=== PATIENT | female | born 1935 | race Caucasian/White ===

== ENCOUNTER 2016-12-24 18:25 | Inpatient (IN) | payer MEDICARE, OTHER ==
[~2016-12-24] VITALS: Ht 152.4 cm; Wt 59.0 kg
[~2016-12-24 18:25] MED LIST: ACET325T53 PO; ASPI81TA31 PO; BISA10SU12 RC; CHOL400C8 PO; CRANBERRY PO; DEXT1CAP3 PO; DOCU-141 PO; FERR-58 PO; GABA-532 PO; HYDR-3326 PO; MAGN400O6 PO; MULT1TAB11 PO; Metoprolol Tartrate PO; NA P133E RC; PANT20TA2 PO
--- NOTE | 2016-12-24 18:41 | NUR ---
PATIENT ARRIVED VIA AMBULANCE FOR "POOR PO'S". SHE IS AWAKE AND ALERT.
[2016-12-24] MEDS ORDERED: HYDR-3326 PO (18:42)
[2016-12-24] MEDS ORDERED: CLON0.5T PO (18:42)
[2016-12-24] MEDS ORDERED: ALBU2.5V38 NEB (18:42)
[2016-12-24] MEDS ORDERED: RIVA10TA PO (18:42)
[2016-12-24] MEDS ORDERED: ROSU10TA PO (18:42)
[2016-12-24 19:53] LABS: BASOPHILS % (AUTO) 0.2 % (0.0-2.0); EOSINOPHILS # (AUTO) 0.2 K/uL (0.0-0.7); EOSINOPHILS % (AUTO) 2.9 % (0.0-7.0); HEMATOCRIT 37.2 % (37-47); HEMOGLOBIN 12.4 G/DL (12.0-16.0); LYMPHOCYTES # (AUTO) 1.5 K/UL (0.8-4.8); LYMPHOCYTES % (AUTO) 22.5 % (20.5-51.5); MEAN CORPUSCULAR HEMOGLOBIN 27.6 UUG (27.0-31.0); MEAN CORPUSCULAR HGB CONC 34 g/dL (32.0-37.0); MEAN CORPUSCULAR VOLUME 82.4 FL (81.0-99.0); MONOCYTES # (AUTO) 0.6 K/UL (0.1-1.30); MONOCYTES % (AUTO) 8.6 % (0.0-11.0); NEUTROPHILS # (AUTO) 4.2 K/UL (1.8-8.9); NEUTROPHILS % (AUTO) 65.8 % (38.5-71.5); PLATELET COUNT (AUTO) 125 K/UL (150-450); RED BLOOD CELL COUNT(AUTO) 4.52 MIL/UL (4.2-5.4); WHITE BLOOD COUNT (AUTO) 6.5 K/UL (4.0-11.2)
[2016-12-24 19:54] LABS: CARBON DIOXIDE 26 mmol/L (21-32); CHLORIDE 106 mmol/L (98-107); CREATININE 0.9 mg/dL (0.6-1.3); GLUCOSE 114 mg/dL (74-106); POTASSIUM 4.3 mmol/L (3.5-5.1); UREA NITROGEN, BLOOD 19 mg/dL (7-18)
[2016-12-24 20:05] LABS: ALANINE AMINOTRANSFERASE 20 U/L (14-59); ALKALINE PHOSPHATASE 62 U/L (50-136); ASPARTATE AMINOTRANSFERASE 21 U/L (15-37); BILIRUBIN,DIRECT 0.1 mg/dL (0.0-0.2); BILIRUBIN,TOTAL 0.4 mg/dL (0.2-1.0); TOTAL PROTEIN, SERUM 7.5 g/dL (6.4-8.2)
[2016-12-24 20:25] LABS: *BLOOD, URINE 3+ (NEGATIVE); *CLARITY,URINE CLOUDY (CLEAR); *KETONES,URINE NEGATIVE (NEGATIVE); *UROBILINOGEN,URINE 0.2 E.U./dl (NORMAL); LEUKOCYTE ESTERASE ,URINE 3+ (NEGATIVE); NITRITE, URINE POSITIVE (NEGATIVE); UGLUCOSE NEGATIVE (NEGATIVE)
[2016-12-24 20:26] LABS: *BILIRUBIN,URIN NEGATIVE (NEGATIVE); *COLOR,URINE Brown (YELLOW); *PROTEIN,URINE 3+ (NEGATIVE)
[2016-12-24 20:29] LABS: BACTERIA,URINE MODERATE /HPF (NONE SEEN); RBC,URINE TNTC /HPF (0-3); SQUAMOUS EPITHELIAL CELL,UR FEW /HPF (NONE SEEN); WBC,URINE 80-100 /HPF (0-3)
--- NOTE | 2016-12-24 20:39 | NUR ---
Call placed to [facility], Dr. Lewis will be paged.
[2016-12-24] MEDS ORDERED: HALOPERIDOL LACTATE 5 MG/1 ML VIAL IV ONE (20:45)
[2016-12-24] MEDS ORDERED: CEFTRIAXONE 1 G in IV DEXTROSE 5% 50 ML IV ONE (20:45)
[2016-12-24] MEDS ORDERED: NITROFURANTOIN/NITROFURAN MAC 100 MG CAPSULE PO ONE (20:45)
[2016-12-24] MEDS ORDERED: HALOPERIDOL LACTATE 5 MG/1 ML VIAL ONE (20:55)
[2016-12-24] MEDS ORDERED: CEFTRIAXONE 1 G VIAL ONE (20:56)
[2016-12-24] MEDS ORDERED: NITROFURANTOIN/NITROFURAN MAC 100 MG CAPSULE ONE (20:56)
--- NOTE | 2016-12-24 21:16 | NUR ---
Pt. admitted to [facility], under care of Dr. Lewis Belongs List completed
[2016-12-24] MEDS ORDERED: Z GUARD REMEDY PASTE 57 GM TUBE TOP PRN (23:00)
[2016-12-24] MEDS ORDERED: BISACODYL 10 MG SUPP.RECT RC PRN (23:45)
[2016-12-24] MEDS ORDERED: MAGNESIUM HYDROXIDE 30 ML LIQUID UDC PO PRN (23:45)
[2016-12-24] MEDS ORDERED: HYDROCODONE/APAP 5-325MG TABLET PO PRN (23:45)
[2016-12-24] MEDS ORDERED: ALBUTEROL SULFATE 2.5 MG/3 ML NEBU NEB PRN (23:45)
[2016-12-24] MEDS ORDERED: FLEET ENEMA 133 ML BOTTLE RC PRN (23:45)
[2016-12-25] MEDS ORDERED: CEFTRIAXONE 1 G in IV DEXTROSE 5% 50 ML IV SCH ×2
[2016-12-25] MEDS: CLONAZEPAM 0.5 MG TABLET PO PRN ×2 (03:44→13:56)
[2016-12-25 05:00] VITALS: BP 117/70
[2016-12-25 06:56] LABS: EOSINOPHILS # (AUTO) 0.2 K/uL (0.0-0.7); EOSINOPHILS % (AUTO) 2.1 % (0.0-7.0); HEMATOCRIT 36.2 % (37-47); HEMOGLOBIN 11.9 G/DL (12.0-16.0); LYMPHOCYTES # (AUTO) 1.3 K/UL (0.8-4.8); LYMPHOCYTES % (AUTO) 17.8 % (20.5-51.5); MEAN CORPUSCULAR HEMOGLOBIN 27.7 UUG (27.0-31.0); MEAN CORPUSCULAR HGB CONC 33 g/dL (32.0-37.0); MEAN CORPUSCULAR VOLUME 83.8 FL (81.0-99.0); MONOCYTES # (AUTO) 0.6 K/UL (0.1-1.30); MONOCYTES % (AUTO) 7.5 % (0.0-11.0); NEUTROPHILS # (AUTO) 5.2 K/UL (1.8-8.9); NEUTROPHILS % (AUTO) 72.6 % (38.5-71.5); PLATELET COUNT (AUTO) 113 K/UL (150-450); RED BLOOD CELL COUNT(AUTO) 4.32 MIL/UL (4.2-5.4); WHITE BLOOD COUNT (AUTO) 7.4 K/UL (4.0-11.2)
[2016-12-25 07:13] LABS: ALANINE AMINOTRANSFERASE 19 U/L (14-59); ALKALINE PHOSPHATASE 56 U/L (50-136); ASPARTATE AMINOTRANSFERASE 24 U/L (15-37); BILIRUBIN,TOTAL 0.4 mg/dL (0.2-1.0); CARBON DIOXIDE 26 mmol/L (21-32); CHLORIDE 105 mmol/L (98-107); CHOLESTEROL 134 mg/dL (<200); GLUCOSE 115 mg/dL (74-106); HDL CHOLESTEROL 39 mg/dL (40-60); POTASSIUM 3.8 mmol/L (3.5-5.1); TOTAL PROTEIN, SERUM 7.1 g/dL (6.4-8.2); TRIGLYCERIDES 244 MG/DL (30-150); UREA NITROGEN, BLOOD 20 mg/dL (7-18)
[2016-12-25 07:19] LABS: THYROID STIMULATING HORMONE 1.078 mIU/mL (0.358-3.740)
[2016-12-25 07:33] LABS: IRON, SERUM 45 ug/dL (50-175)
--- NOTE | 2016-12-25 07:59 | NUR ---
Sleeping, comfortable. Bed alarm on
[2016-12-25] MEDS: METOPROLOL TARTRATE 25 MG TABLET PO SCH ×2 (08:49→20:02)
[2016-12-25] MEDS: GABAPENTIN 100 MG CAPSULE PO SCH ×3 (08:49→18:16)
[2016-12-25] MEDS: PANTOPRAZOLE SODIUM 40 MG TABLET.DR PO SCH (08:49)
[2016-12-25 11:06] VITALS: BP 100/45
--- NOTE | 2016-12-25 13:56 | NUR ---
Patient agitated, screaming. Noted with BM. Incontinence care done. Repositioned comfortably but still screaming. Klonopin PRN given.
[2016-12-25 15:11] VITALS: BP 140/71
[2016-12-25] MEDS: RIVAROXABAN 10 MG TABLET PO SCH (18:16)
--- NOTE | 2016-12-25 18:23 | NUR ---
Drowsy, able to wake up, able to give apple sauce and medication. Repositioned comfortably. Bed alarm on.
[2016-12-25 20:00] VITALS: BP 125/68
[2016-12-25] MEDS: ATORVASTATIN 20 MG TABLET PO SCH (20:03)
[2016-12-25] MEDS: CEFTRIAXONE 1 G in IV DEXTROSE 5% 50 ML IV SCH (20:03)
--- NOTE | 2016-12-25 20:15 | NUR ---
CAREGIVER JOSE FED PATIENT HER DINNER. 90% CONSUMED. NO ASPIRATION.
[2016-12-25] MEDS ORDERED: Medication Not On Formulary EA (Rosuvastatin Calcium (Crestor) 1 TAB) PO SCH (21:00)
[2016-12-26 04:00] VITALS: BP 107/78
[2016-12-26] MEDS: CLONAZEPAM 0.5 MG TABLET PO PRN ×2 (05:44→18:22)
--- NOTE | 2016-12-26 06:00 | NUR ---
PATIENT SLEPT WELL, IN NO ACUTE DISTRESS. ZAMORA CATH INTACT, DRAINING CLOUDY, YELLOW URINE. IV ANTIBIOTICS ADMINISTERED ORDERED, NO ADVERSE REACTION NOTED. PATIENT KEPT CLEAN/DRY, REPOSITIONED FOR COMFORT. BED ALARM ON. WILL CONTINUE TO MONITOR.
[2016-12-26] MEDS: PANTOPRAZOLE SODIUM 40 MG TABLET.DR PO SCH (06:01)
[2016-12-26] MEDS: METOPROLOL TARTRATE 25 MG TABLET PO SCH ×2 (08:54→20:01)
[2016-12-26] MEDS: GABAPENTIN 100 MG CAPSULE PO SCH ×3 (08:54→17:47)
[2016-12-26 12:03] VITALS: BP 144/77
--- NOTE | 2016-12-26 12:56 | NUR ---
PT ATE LUNCH IN CHAIR, PUT BACK TO BED, INCONTINENCE CARE PROVIDED, WILL CONTINUE TO MONITOR
[2016-12-26 16:16] VITALS: BP 114/59
[2016-12-26] MEDS: RIVAROXABAN 10 MG TABLET PO SCH (17:48)
[2016-12-26] MEDS: ACETAMINOPHEN 325 MG TABLET PO PRN (18:28)
--- NOTE | 2016-12-26 18:31 | NUR ---
PT WARM TO TOUCH, TEMP TAKEN 99.7. TYLENOL GIVEN ORDERED
[2016-12-26 20:00] VITALS: BP 139/70
[2016-12-26] MEDS: ATORVASTATIN 20 MG TABLET PO SCH (20:01)
[2016-12-26] MEDS: CEFTRIAXONE 1 G in IV DEXTROSE 5% 50 ML IV SCH (20:01)
[2016-12-27 05:16] VITALS: BP 98/69
[2016-12-27] MEDS: PANTOPRAZOLE SODIUM 40 MG TABLET.DR PO SCH (06:00)
[2016-12-27 06:31] LABS: ALANINE AMINOTRANSFERASE 22 U/L (14-59); ALKALINE PHOSPHATASE 55 U/L (50-136); ASPARTATE AMINOTRANSFERASE 25 U/L (15-37); BILIRUBIN,TOTAL 0.4 mg/dL (0.2-1.0); CARBON DIOXIDE 27 mmol/L (21-32); CHLORIDE 104 mmol/L (98-107); CREATININE 1.2 mg/dL (0.6-1.3); GLUCOSE 155 mg/dL (74-106); MAGNESIUM 2.1 mg/dL (1.8-2.4); PHOSPHOROUS 3.8 mg/dL (2.5-4.9); POTASSIUM 3.9 mmol/L (3.5-5.1); TOTAL PROTEIN, SERUM 7.7 g/dL (6.4-8.2); UREA NITROGEN, BLOOD 29 mg/dL (7-18)
--- NOTE | 2016-12-27 06:35 | NUR ---
PT SLEPT WELL, IN NO ACUTE DISTRESS. NO SIGNIFICANT CHANGE OF CONDITION THROUGHOUT THE SHIFT. BED ALARM ON. WILL CONTINUE TO MONITOR.
[2016-12-27 06:42] LABS: BASOPHILS % (AUTO) 0.2 % (0.0-2.0); EOSINOPHILS # (AUTO) 0.2 K/uL (0.0-0.7); EOSINOPHILS % (AUTO) 3.2 % (0.0-7.0); HEMATOCRIT 40.2 % (37-47); HEMOGLOBIN 13.4 G/DL (12.0-16.0); LYMPHOCYTES # (AUTO) 1.7 K/UL (0.8-4.8); LYMPHOCYTES % (AUTO) 23.7 % (20.5-51.5); MEAN CORPUSCULAR HEMOGLOBIN 27.7 UUG (27.0-31.0); MEAN CORPUSCULAR HGB CONC 33 g/dL (32.0-37.0); MEAN CORPUSCULAR VOLUME 83.2 FL (81.0-99.0); MONOCYTES # (AUTO) 0.6 K/UL (0.1-1.30); MONOCYTES % (AUTO) 8.4 % (0.0-11.0); NEUTROPHILS # (AUTO) 4.7 K/UL (1.8-8.9); NEUTROPHILS % (AUTO) 64.5 % (38.5-71.5); PLATELET COUNT (AUTO) 135 K/UL (150-450); RED BLOOD CELL COUNT(AUTO) 4.82 MIL/UL (4.2-5.4); WHITE BLOOD COUNT (AUTO) 7.2 K/UL (4.0-11.2)
[2016-12-27] MEDS: METOPROLOL TARTRATE 25 MG TABLET PO SCH ×2 (08:28→21:35)
[2016-12-27] MEDS: GABAPENTIN 100 MG CAPSULE PO SCH ×3 (08:28→16:12)
[2016-12-27] MEDS ORDERED: Z GUARD REMEDY PASTE 57 GM TUBE TOP PRN ×2 (10:45→11:30)
[2016-12-27 12:08] VITALS: BP 103/65
[2016-12-27 15:44] VITALS: BP 109/65
[2016-12-27] MEDS: CLONAZEPAM 0.5 MG TABLET PO PRN (18:10)
[2016-12-27] MEDS: RIVAROXABAN 10 MG TABLET PO SCH (18:17)
[2016-12-27 20:06] VITALS: BP 129/50
[2016-12-27] MEDS: ATORVASTATIN 20 MG TABLET PO SCH (21:35)
[2016-12-27] MEDS: ACETAMINOPHEN 325 MG TABLET PO PRN (21:35)
[2016-12-27] MEDS: CEFTRIAXONE 1 G in IV DEXTROSE 5% 50 ML IV SCH (21:36)
--- NOTE | 2016-12-28 06:00 | NUR ---
PT SLEPT WELL, IN NO ACUTE DISTRESS. ZAMORA CATH INTACT/PATENT, DRAINING YELLOW URINE. IV ANTIBIOTIC ADMINISTERED ORDERED, NO ADVERSE REACTION NOTED. PATIENT KEPT CLEAN/DRY, REPOSITIONED FOR COMFORT. BED ALARM ON, WILL CONTINUE TO MONITOR.
[2016-12-28] MEDS: PANTOPRAZOLE SODIUM 40 MG TABLET.DR PO SCH (06:21)
[2016-12-28 06:36] VITALS: BP 104/57
[2016-12-28] MEDS: GABAPENTIN 100 MG CAPSULE PO SCH ×3 (08:26→16:47)
[2016-12-28] MEDS: METOPROLOL TARTRATE 25 MG TABLET PO SCH ×2 (08:26→20:19)
--- NOTE | 2016-12-28 11:18 | NUR ---
PT OOB IN CHAIR
[2016-12-28] MEDS: CLONAZEPAM 0.5 MG TABLET PO PRN ×2 (11:46→20:11)
[2016-12-28 12:00] VITALS: BP 125/69
[2016-12-28] MEDS ORDERED: HYDR-3326 PO (13:09)
[2016-12-28] MEDS ORDERED: CEFT1VIA15 IV (13:10)
[2016-12-28] MEDS ORDERED: ACID1TAB4 PO (13:10)
[2016-12-28] MEDS ORDERED: MENT71OI TOP (13:10)
--- NOTE | 2016-12-28 15:17 | NUR ---
DISCHARGE NOTED. PATIENT PLACED BACK IN BED, ZAMORA REMOVED, PT VOIDED S/P REMOVAL.
[2016-12-28 16:08] VITALS: BP 104/62
[2016-12-28] MEDS: RIVAROXABAN 10 MG TABLET PO SCH (17:38)
--- NOTE | 2016-12-28 18:51 | NUR ---
DISCHARGE PROTOCOL FOLLOWED. ALL PAPERWORK SIGNED, NO BELONGINGS. AWAITING AMBULANCE ARRIVAL. REPORT CALLED TO RECEIVING FACILITY. WILL ENDORSE TO EMERGENCY PREPAREDNESS MANAGER
--- NOTE | 2016-12-28 19:00 | NUR ---
Pt alert, awake, with repeated words 'mama'. No acute distress. Blood pressure 100/70. Dscharge in process and awaiting ambulance.
[2016-12-28 20:00] VITALS: BP 100/70
[2016-12-28] MEDS: ACETAMINOPHEN 325 MG TABLET PO PRN (20:11)
[2016-12-28] MEDS: ATORVASTATIN 20 MG TABLET PO SCH (20:11)
[2016-12-28 20:19] VITALS: BP 100/70
--- NOTE | 2016-12-28 20:45 | NUR ---
Pt discharged and transferred via gurney. No acute distress. Report given to NIKITA Harper. Copies of chart also given.
== END 2016-12-28 20:53 | DRG 871 ==
LOC: ER 18:28 → MED 21:31 → TELE 12-25 06:04 → MED 12-25 13:47
PROVIDERS: ADMIT Internal Medicine; ATTEND Internal Medicine
DX: A41.9 Sepsis, unspecified organism (principal); G92 Toxic encephalopathy; I50.33 Acute on chronic diastolic (congestive) heart failure; D68.59 Other primary thrombophilia; D69.6 Thrombocytopenia, unspecified; N39.0 Urinary tract infection, site not specified; D50.9 Iron deficiency anemia, unspecified; E11.9 Type 2 diabetes mellitus without complications; I11.0 Hypertensive heart disease with heart failure; K21.9 Gastro-esophageal reflux disease without esophagitis; Z86.73 Personal history of transient ischemic attack (TIA), and cerebral infarction without residual deficits; Z87.11 Personal history of peptic ulcer disease; Z88.0 Allergy status to penicillin; M19.90 Unspecified osteoarthritis, unspecified site; F01.50 Vascular dementia, unspecified severity, without behavioral disturbance, psychotic disturbance, mood disturbance, and anxiety; B96.4 Proteus (mirabilis) (morganii) as the cause of diseases classified elsewhere; K43.9 Ventral hernia without obstruction or gangrene
CPT/HCPCS: 36415; 70030-TC; 70450; 71010; 83550; 83605; 83735; 84100; 84443; 85025; 85730; 87040; 87077; 87086; 87400; 93005; A4663; J0696; J1630; J7030; J7050; J7060

== ENCOUNTER 2017-04-04 01:01 | Inpatient (IN) | payer MEDICARE, OTHER ==
[~2017-04-04] VITALS: Ht 160 cm; Wt 61.2 kg
[~2017-04-04 01:01] MED LIST changes: +ACID1TAB4 PO; +ALBU2.5V38 NEB; -ASPI81TA31 PO; +CEFT1VIA15 IV; -CHOL400C8 PO; +CLON0.5T PO; -CRANBERRY PO; -DOCU-141 PO; -FERR-58 PO; +MENT71OI TOP; -MULT1TAB11 PO; +RIVA10TA PO; +ROSU10TA PO
[2017-04-04] MEDS ORDERED: CRAN500C5 PO (01:45)
[2017-04-04] MEDS ORDERED: HYDROCODONE/APAP 5-325MG TABLET PO ONE (03:00)
[2017-04-04] MEDS ORDERED: HYDROCODONE/APAP 5-325MG TABLET ONE (03:15)
[2017-04-04 03:30] LABS: BASOPHILS % (AUTO) 0.3 % (0.0-2.0); EOSINOPHILS # (AUTO) 0.2 K/uL (0.0-0.7); EOSINOPHILS % (AUTO) 3.7 % (0.0-7.0); HEMATOCRIT 36.9 % (31.2-41.9); HEMOGLOBIN 12.4 g/dL (10.9-14.3); LYMPHOCYTES # (AUTO) 1.3 K/uL (20.0-40.0); LYMPHOCYTES % (AUTO) 22.7 % (20.5-51.5); MEAN CORPUSCULAR HEMOGLOBIN 27.9 uug (24.7-32.8); MEAN CORPUSCULAR HGB CONC 34 g/dL (32.3-35.6); MONOCYTES # (AUTO) 0.5 K/uL (2.0-10.0); MONOCYTES % (AUTO) 8.6 % (0.0-11.0); NEUTROPHILS # (AUTO) 3.6 K/uL (1.8-8.9); NEUTROPHILS % (AUTO) 64.7 % (38.5-71.5); PLATELET COUNT (AUTO) 119 K/uL (179-408); RED BLOOD CELL COUNT(AUTO) 4.45 MIL/uL (3.63-4.92); WHITE BLOOD COUNT (AUTO) 5.6 K/uL (3.8-11.8)
[2017-04-04 03:38] LABS: ALANINE AMINOTRANSFERASE 20 U/L (14-59); ALKALINE PHOSPHATASE 71 U/L (50-136); ASPARTATE AMINOTRANSFERASE 24 U/L (15-37); BILIRUBIN,DIRECT 0.1 mg/dL (0.0-0.2); BILIRUBIN,TOTAL 0.5 mg/dL (0.2-1.0); CARBON DIOXIDE 26 mmol/L (21-32); CHLORIDE 106 mmol/L (98-107); GLUCOSE 132 mg/dL (74-106); POTASSIUM 4.2 mmol/L (3.5-5.1); TOTAL PROTEIN, SERUM 7.4 g/dL (6.4-8.2); UREA NITROGEN, BLOOD 19 mg/dL (7-18)
[2017-04-04] MEDS ORDERED: ALBUTEROL SULFATE 2.5 MG/3 ML NEBU NEB PRN (05:30)
[2017-04-04] MEDS ORDERED: Z GUARD REMEDY PASTE 57 GM TUBE TOP PRN (05:45)
[2017-04-04] MEDS ORDERED: ACETAMINOPHEN 325 MG TABLET PO PRN (05:45)
[2017-04-04] MEDS ORDERED: ENOXAPARIN SODIUM 40 MG/0.4 ML DISP.SYRIN SQ SCH (05:45)
[2017-04-04] MEDS ORDERED: ZOLPIDEM 5 MG TABLET PO PRN (05:45)
[2017-04-04] MEDS ORDERED: ONDANSETRON 4 MG/2 ML VIAL IV PRN (05:45)
[2017-04-04] MEDS ORDERED: MAGNESIUM HYDROXIDE 30 ML LIQUID UDC PO PRN (05:45)
[2017-04-04 05:54] VITALS: BP 138/49
[2017-04-04] MEDS: GABAPENTIN 100 MG CAPSULE PO SCH ×3 (08:50→17:15)
[2017-04-04] MEDS: METOPROLOL TARTRATE 50 MG TABLET PO SCH ×2 (08:50→21:34)
[2017-04-04] MEDS: ACIDOPHILUS/BULGARICUS CHEW TAB PO SCH ×2 (08:51→17:15)
[2017-04-04] MEDS ORDERED: CEFTRIAXONE 1 G in IV DEXTROSE 5% 50 ML IV SCH (10:00)
[2017-04-04 11:39] VITALS: BP 142/67
[2017-04-04] MEDS: HYDROCODONE/APAP 5-325MG TABLET PO PRN ×2 (15:46→20:12)
[2017-04-04 16:17] VITALS: BP 154/77
[2017-04-04] MEDS: RIVAROXABAN 10 MG TABLET PO SCH (17:18)
[2017-04-04] MEDS ORDERED: MORPHINE SULFATE 4 MG/1 ML DISP.SYRIN IV PRN (19:30)
[2017-04-04] MEDS ORDERED: MORPHINE SULFATE 2 MG/1 ML DISP.SYRIN IV PRN (19:30)
[2017-04-04] MEDS: CLONAZEPAM 0.5 MG TABLET PO PRN (20:12)
[2017-04-04] MEDS: ATORVASTATIN 20 MG TABLET PO SCH (20:13)
[2017-04-04 20:21] VITALS: BP 136/71
[2017-04-05 04:00] VITALS: BP 148/66
[2017-04-05] MEDS: CLONAZEPAM 0.5 MG TABLET PO PRN ×3 (04:25→21:11)
[2017-04-05 07:16] LABS: BASOPHILS % (AUTO) 0.4 % (0.0-2.0); EOSINOPHILS # (AUTO) 0.2 K/uL (0.0-0.7); EOSINOPHILS % (AUTO) 2.9 % (0.0-7.0); HEMOGLOBIN 11.7 g/dL (10.9-14.3); LYMPHOCYTES # (AUTO) 1.4 K/uL (20.0-40.0); LYMPHOCYTES % (AUTO) 23.5 % (20.5-51.5); MEAN CORPUSCULAR HEMOGLOBIN 27.7 uug (24.7-32.8); MEAN CORPUSCULAR HGB CONC 33 g/dL (32.3-35.6); MEAN CORPUSCULAR VOLUME 83.1 fL (75.5-95.3); MONOCYTES # (AUTO) 0.6 K/uL (2.0-10.0); MONOCYTES % (AUTO) 10.9 % (0.0-11.0); NEUTROPHILS # (AUTO) 3.6 K/uL (1.8-8.9); NEUTROPHILS % (AUTO) 62.3 % (38.5-71.5); PLATELET COUNT (AUTO) 110 K/uL (179-408); RED BLOOD CELL COUNT(AUTO) 4.21 MIL/uL (3.63-4.92); WHITE BLOOD COUNT (AUTO) 5.8 K/uL (3.8-11.8)
[2017-04-05 07:23] LABS: CARBON DIOXIDE 25 mmol/L (21-32); CHLORIDE 103 mmol/L (98-107); CHOLESTEROL 135 mg/dL (<200); CREATININE 1.2 mg/dL (0.6-1.3); GLUCOSE 148 mg/dL (74-106); HDL CHOLESTEROL 32 mg/dL (40-60); MAGNESIUM 1.8 mg/dL (1.8-2.4); PHOSPHOROUS 4.2 mg/dL (2.5-4.9); POTASSIUM 3.9 mmol/L (3.5-5.1); TRIGLYCERIDES 257 MG/DL (30-150); UREA NITROGEN, BLOOD 21 mg/dL (7-18)
[2017-04-05 07:37] LABS: THYROID STIMULATING HORMONE 1.966 mIU/mL (0.358-3.740)
[2017-04-05] MEDS: ACIDOPHILUS/BULGARICUS CHEW TAB PO SCH ×2 (09:20→17:41)
[2017-04-05] MEDS: GABAPENTIN 100 MG CAPSULE PO SCH ×3 (09:20→17:41)
[2017-04-05] MEDS: METOPROLOL TARTRATE 50 MG TABLET PO SCH ×2 (09:23→20:47)
[2017-04-05] MEDS ORDERED: MAGNESIUM CITRATE 296 ML BOTTLE PO ONE (10:45)
[2017-04-05 11:57] VITALS: BP 121/57
[2017-04-05 16:02] VITALS: BP 129/63
[2017-04-05] MEDS ORDERED: HYDROCODONE/APAP 10-325 MG TABLET PO PRN (17:15)
[2017-04-05] MEDS: RIVAROXABAN 10 MG TABLET PO SCH (17:44)
[2017-04-05] MEDS: ATORVASTATIN 20 MG TABLET PO SCH (20:48)
[2017-04-05 20:53] VITALS: BP 126/65
[2017-04-06 04:00] VITALS: BP 130/60
[2017-04-06] MEDS ORDERED: INFLUENZA VACCINE 2017-2018 0.5 ML DISP.SYRIN IM ONE (09:00)
[2017-04-06] MEDS: GABAPENTIN 100 MG CAPSULE PO SCH ×3 (09:30→16:31)
[2017-04-06] MEDS: ACIDOPHILUS/BULGARICUS CHEW TAB PO SCH ×2 (09:30→16:31)
[2017-04-06] MEDS: METOPROLOL TARTRATE 50 MG TABLET PO SCH ×2 (09:31→20:28)
[2017-04-06] MEDS: CLONAZEPAM 0.5 MG TABLET PO PRN ×3 (09:38→21:42)
[2017-04-06 11:29] VITALS: BP 119/54
[2017-04-06 15:32] VITALS: BP 109/50
[2017-04-06] MEDS ORDERED: RIVAROXABAN 10 MG TABLET PO SCH (18:00)
[2017-04-06 19:36] VITALS: BP 113/53
[2017-04-06] MEDS: ATORVASTATIN 20 MG TABLET PO SCH (20:29)
[2017-04-06] MEDS ORDERED: LORAZEPAM 2 MG/1 ML VIAL IM ONE (22:30)
[2017-04-07 03:29] VITALS: BP 123/56
[2017-04-07 06:37] LABS: BASOPHILS % (AUTO) 0.2 % (0.0-2.0); EOSINOPHILS # (AUTO) 0.2 K/uL (0.0-0.7); EOSINOPHILS % (AUTO) 2.9 % (0.0-7.0); HEMATOCRIT 33.9 % (31.2-41.9); HEMOGLOBIN 11.4 g/dL (10.9-14.3); LYMPHOCYTES # (AUTO) 1.4 K/uL (20.0-40.0); LYMPHOCYTES % (AUTO) 23.4 % (20.5-51.5); MEAN CORPUSCULAR HGB CONC 34 g/dL (32.3-35.6); MEAN CORPUSCULAR VOLUME 83.1 fL (75.5-95.3); MONOCYTES # (AUTO) 0.6 K/uL (2.0-10.0); MONOCYTES % (AUTO) 10.1 % (0.0-11.0); NEUTROPHILS # (AUTO) 3.8 K/uL (1.8-8.9); NEUTROPHILS % (AUTO) 63.4 % (38.5-71.5); PLATELET COUNT (AUTO) 106 K/uL (179-408); RED BLOOD CELL COUNT(AUTO) 4.08 MIL/uL (3.63-4.92)
[2017-04-07 07:26] LABS: CARBON DIOXIDE 31 mmol/L (21-32); CHLORIDE 105 mmol/L (98-107); CREATININE 1.2 mg/dL (0.6-1.3); GLUCOSE 123 mg/dL (74-106); MAGNESIUM 2.6 mg/dL (1.8-2.4); PHOSPHOROUS 4.1 mg/dL (2.5-4.9); POTASSIUM 4.5 mmol/L (3.5-5.1); UREA NITROGEN, BLOOD 31 mg/dL (7-18)
[2017-04-07] MEDS: ACIDOPHILUS/BULGARICUS CHEW TAB PO SCH (08:39)
[2017-04-07] MEDS: GABAPENTIN 100 MG CAPSULE PO SCH ×2 (08:39→12:05)
[2017-04-07] MEDS: METOPROLOL TARTRATE 50 MG TABLET PO SCH (08:40)
[2017-04-07] MEDS: CLONAZEPAM 0.5 MG TABLET PO PRN (08:40)
[2017-04-07 11:06] VITALS: BP 131/58
[2017-04-07] MEDS ORDERED: QUETIAPINE FUMARATE 25 MG TABLET PO PRN (12:30)
[2017-04-07] MEDS ORDERED: RIVA10TA PO (14:22)
[2017-04-07] MEDS ORDERED: QUET25TA PO ×2 (14:22)
[2017-04-07] MEDS ORDERED: QUETIAPINE FUMARATE 25 MG TABLET PO SCH (21:00)
== END 2017-04-07 13:20 | DRG 553 ==
LOC: ER 01:05 → MED 02:30
DX: M12.521 Traumatic arthropathy, right elbow (principal); G93.40 Encephalopathy, unspecified; D68.59 Other primary thrombophilia; D68.9 Coagulation defect, unspecified; D69.6 Thrombocytopenia, unspecified; E11.40 Type 2 diabetes mellitus with diabetic neuropathy, unspecified; I50.32 Chronic diastolic (congestive) heart failure; I11.0 Hypertensive heart disease with heart failure; K21.9 Gastro-esophageal reflux disease without esophagitis; K56.41 Fecal impaction; Z79.01 Long term (current) use of anticoagulants; Z79.899 Other long term (current) drug therapy; F41.9 Anxiety disorder, unspecified; D64.9 Anemia, unspecified; I25.10 Atherosclerotic heart disease of native coronary artery without angina pectoris; F01.50 Vascular dementia, unspecified severity, without behavioral disturbance, psychotic disturbance, mood disturbance, and anxiety; Z87.11 Personal history of peptic ulcer disease; Z88.0 Allergy status to penicillin; Z79.84 Long term (current) use of oral hypoglycemic drugs; M12.50 Traumatic arthropathy, unspecified site; F29 Unspecified psychosis not due to a substance or known physiological condition; N20.0 Calculus of kidney; E11.9 Type 2 diabetes mellitus without complications; K43.9 Ventral hernia without obstruction or gangrene; T14.90XS Injury, unspecified, sequela; X58.XXXS Exposure to other specified factors, sequela; G89.29 Other chronic pain
CPT/HCPCS: 36415; 70030-TC; 71010; 73080; 73200; 83735; 84100; 84443; 85025; 85730; 86850; 86900; 86901; 93005; 97530; A4663; J0696; J2060; J2270; J7060

== ENCOUNTER 2018-11-15 13:41 | Inpatient (IN) | payer MEDICARE, MEDICAID ==
[~2018-11-15] VITALS: Ht 160 cm; Wt 59.4 kg
[~2018-11-15 13:41] MED LIST changes: -CEFT1VIA15 IV; -CLON0.5T PO; +CRAN500C5 PO; +QUET25TA PO; -ROSU10TA PO; +ROSU10TA2 PO
[2018-11-15] MEDS ORDERED: IV NORMAL SALINE 1000 ML BAG IV ONE (14:15)
[2018-11-15 14:36] LABS: BASOPHILS % (AUTO) 0.4 % (0.0-2.0); EOSINOPHILS # (AUTO) 0.1 K/uL (0.0-0.7); EOSINOPHILS % (AUTO) 2.2 % (0.0-7.0); HEMATOCRIT 38.7 % (31.2-41.9); LYMPHOCYTES # (AUTO) 1.5 K/uL (20.0-40.0); LYMPHOCYTES % (AUTO) 24.2 % (20.5-51.5); MEAN CORPUSCULAR HEMOGLOBIN 27.1 uug (24.7-32.8); MEAN CORPUSCULAR HGB CONC 33 g/dL (32.3-35.6); MEAN CORPUSCULAR VOLUME 81.1 fL (75.5-95.3); MONOCYTES # (AUTO) 0.4 K/uL (2.0-10.0); MONOCYTES % (AUTO) 7.1 % (0.0-11.0); NEUTROPHILS % (AUTO) 66.1 % (38.5-71.5); PLATELET COUNT (AUTO) 93 K/uL (179-408); RED BLOOD CELL COUNT(AUTO) 4.78 MIL/uL (3.63-4.92); WHITE BLOOD COUNT (AUTO) 6.1 K/uL (3.8-11.8)
[2018-11-15 14:43] LABS: CARBON DIOXIDE 25 mmol/L (21-32); CHLORIDE 108 mmol/L (98-107); CREATININE 0.9 mg/dL (0.6-1.3); GLUCOSE 203 mg/dL (74-106); UREA NITROGEN, BLOOD 18 mg/dL (7-18)
[2018-11-15 14:49] LABS: ALANINE AMINOTRANSFERASE 20 U/L (14-59); ALKALINE PHOSPHATASE 63 U/L (50-136); ASPARTATE AMINOTRANSFERASE 18 U/L (15-37); BILIRUBIN,DIRECT 0.1 mg/dL (0.0-0.2); BILIRUBIN,TOTAL 0.5 mg/dL (0.2-1.0); TOTAL PROTEIN, SERUM 7.3 g/dL (6.4-8.2)
[2018-11-15 15:00] LABS: THYROID STIMULATING HORMONE 0.966 mIU/mL (0.358-3.740)
[2018-11-15 15:06] LABS: BAND % (MANUAL) 2 % (0-10); BASOPHILS % (MANUAL) 1 % (0-2); EOSINOPHILS % (MANUAL) 3 % (0-8); LYMPHOCYTES % (MANUAL) 25 % (20-40); MONOCYTES % (MANUAL) 5 % (2-10); NEUTROPHILS % (MANUAL) 64 % (42-75)
--- NOTE | 2018-11-15 15:33 | NUR ---
Upon inserting f/c for urine collection, pt opened eyes and screamed, try to kick.
[2018-11-15 15:49] LABS: *BILIRUBIN,URIN NEGATIVE (NEGATIVE); *BLOOD, URINE 2+ (NEGATIVE); *CLARITY,URINE CLOUDY (CLEAR); *COLOR,URINE YELLOW (YELLOW); *KETONES,URINE NEGATIVE (NEGATIVE); *UROBILINOGEN,URINE 0.2 E.U./dl (NORMAL); LEUKOCYTE ESTERASE ,URINE 3+ (NEGATIVE); NITRITE, URINE NEGATIVE (NEGATIVE); UGLUCOSE NEGATIVE (NEGATIVE)
[2018-11-15 16:03] LABS: BACTERIA,URINE MODERATE /HPF (NONE SEEN); SQUAMOUS EPITHELIAL CELL,UR FEW /HPF (NONE SEEN); WBC,URINE TNTC /HPF (0-3)
[2018-11-15] MEDS ORDERED: NA P133E RC (16:25)
[2018-11-15] MEDS ORDERED: BACL5TAB PO (16:25)
[2018-11-15] MEDS ORDERED: UTI HEAL PO (16:25)
[2018-11-15] MEDS ORDERED: BISA10SU12 RC (16:25)
[2018-11-15] MEDS ORDERED: GABA-534 PO (16:25)
[2018-11-15] MEDS ORDERED: DEXT15DR6 OP (16:25)
[2018-11-15] MEDS ORDERED: ACET325T53 PO (16:25)
[2018-11-15] MEDS ORDERED: CALC-1026 PO (16:25)
[2018-11-15] MEDS ORDERED: HYDR-3974 PO ×2 (16:25)
[2018-11-15] MEDS ORDERED: ROSU10TA2 PO (16:25)
[2018-11-15] MEDS ORDERED: ACID1TAB12 PO (16:25)
[2018-11-15] MEDS ORDERED: FAMO10TA41 PO (16:25)
[2018-11-15] MEDS ORDERED: METO25TA6 PO (16:25)
[2018-11-15] MEDS ORDERED: DOCU-141 PO (16:25)
[2018-11-15] MEDS ORDERED: MAGN400O6 PO (16:25)
[2018-11-15] MEDS ORDERED: LEVOFLOXACIN 500 MG/D5W 100 ML ONE (16:41)
[2018-11-15] MEDS ORDERED: LEVOFLOXACIN 500 MG/D5W 100ML PIGGYBACK IV ONE (16:45)
--- NOTE | 2018-11-15 17:15 | NUR ---
RECEIVED PATIENT FOR ADMISSION 83 YEARS OLD FEMALE BY JEFFREY WITH DX OF ALTERED MENTAL STATUS AND UTI.PLACED INTO BED FIXED AND MADE COMFORTABLE PATIENT IS CONFUSED AND DISORIENTED ON ROOM AIR TIFFANIE UPPER EXT ARE CONTRACTED LOWER EXT WEAK STIFF BUT SHE IS MOVING THEM FREELY.SHE HAS LEVAQUIN ATB INFUSING AT THIS TIME TP HER RIGHT HAND WITH NO S/S OF INFILTERATION ON SITE.DAUGHTER AND SON AT THE BEDSIDE AND ASSISTED WITH THE ADMISSION PROCESS.CALLED DR QUICK RE ADMISSION ORDERS AND LEFT HER A MESSAGE
[2018-11-15 17:27] VITALS: BP 160/60
--- NOTE | 2018-11-15 19:20 | NUR ---
Received patient lying in bed. Awake but confused and disoriented. In no acute distress. No signs or symptoms of pain or SOB. O2 sat at 95% on RA. IV site on right wrist area intact and patent. NSR on tele at 72/min. Safety measure initiated and call landry within reach. Telephone call to [facility], still needing admitting orders.
[2018-11-15 20:19] VITALS: BP 147/67
[2018-11-15] MEDS ORDERED: ONDANSETRON 4 MG/2 ML VIAL IV PRN (20:30)
[2018-11-15] MEDS ORDERED: Z GUARD REMEDY PASTE 57 GM TUBE TOP PRN (20:30)
[2018-11-15] MEDS ORDERED: HYDROCODONE/APAP 5-325MG TABLET PO PRN (20:30)
[2018-11-15] MEDS ORDERED: MAGNESIUM HYDROXIDE 30 ML LIQUID UDC PO PRN (20:30)
[2018-11-15] MEDS ORDERED: LEVOFLOXACIN 500 MG/D5W 500 MG in PREMIXED 1 EACH IV SCH (20:30)
--- NOTE | 2018-11-15 20:36 | NUR ---
Swallow screening done per EL[facility] Velasquez's instruction. Patient passed swallow screening. No choking noted, no difficulty chewing or swallowing puree food and thin liquids. EL[facility] Velasquez made aware.
[2018-11-15] MEDS ORDERED: DEXTROSE 50% 50 ML DISP.SYRIN IV PRN (21:00)
[2018-11-15] MEDS: Z GUARD REMEDY PASTE 57 GM TUBE TOP SCH (21:10)
[2018-11-15] MEDS: NYSTATIN POWDER 15 GM BOTTLE TOP SCH (21:10)
[2018-11-15] MEDS: BLOOD SUGAR DIAGNOSTIC 1 EACH STRIP VI SCH (21:13)
[2018-11-15] MEDS: INSULIN REGULAR, HUMAN 300 UNIT/3 ML VIAL SQ PRN (21:15)
[2018-11-15] MEDS: IV D5 1/2 NS 1000 ML 1,000 ML IV PRN (21:16)
[2018-11-15] MEDS: ZOLPIDEM 5 MG TABLET PO PRN (23:38)
[2018-11-16 00:09] VITALS: BP 138/73
--- NOTE | 2018-11-16 00:53 | NUR ---
Patient constantly screaming "Mamma", inspite of getting Ambien 5mg PO for sleep at 2338 last night and [place]man 5/325mg PO at 0035. Tried to reposition and offer fluid which she took. Still continue to screaming loudly. Informed WIRE ANNEALER Nixon with order to give patient Lorazepam 0.5mg IV x1. Will carry out order.
[2018-11-16] MEDS ORDERED: LORAZEPAM 2 MG/1 ML VIAL IV ONE (01:00)
[2018-11-16 04:00] VITALS: BP 133/49
--- NOTE | 2018-11-16 06:15 | NUR ---
Patient confused and disoriented. In no acute distress. No signs or symptoms of pain or SOB at this time. IV site on right wrist area intact and patent. IVF infusing. NSR on tele at 73/min. Needs assessed and attended to. Safety measure maintained and call landry within reach.
[2018-11-16 06:35] LABS: BASOPHILS % (AUTO) 0.3 % (0.0-2.0); EOSINOPHILS # (AUTO) 0.1 K/uL (0.0-0.7); EOSINOPHILS % (AUTO) 2.3 % (0.0-7.0); LYMPHOCYTES # (AUTO) 1.2 K/uL (20.0-40.0); LYMPHOCYTES % (AUTO) 23.7 % (20.5-51.5); MEAN CORPUSCULAR HEMOGLOBIN 27.6 uug (24.7-32.8); MEAN CORPUSCULAR HGB CONC 34 g/dL (32.3-35.6); MEAN CORPUSCULAR VOLUME 80.6 fL (75.5-95.3); MONOCYTES # (AUTO) 0.5 K/uL (2.0-10.0); MONOCYTES % (AUTO) 8.9 % (0.0-11.0); NEUTROPHILS # (AUTO) 3.4 K/uL (1.8-8.9); NEUTROPHILS % (AUTO) 64.8 % (38.5-71.5); PLATELET COUNT (AUTO) 83 K/uL (179-408); RED BLOOD CELL COUNT(AUTO) 4.34 MIL/uL (3.63-4.92); WHITE BLOOD COUNT (AUTO) 5.3 K/uL (3.8-11.8)
[2018-11-16 06:42] LABS: CARBON DIOXIDE 25 mmol/L (21-32); CHLORIDE 107 mmol/L (98-107); CHOLESTEROL 110 mg/dL (<200); CREATININE 0.9 mg/dL (0.6-1.3); GLUCOSE 154 mg/dL (74-106); HDL CHOLESTEROL 33 mg/dL (40-60); MAGNESIUM 1.7 mg/dL (1.8-2.4); POTASSIUM 4.4 mmol/L (3.5-5.1); TRIGLYCERIDES 263 MG/DL (30-150); UREA NITROGEN, BLOOD 15 mg/dL (7-18)
[2018-11-16] MEDS: BLOOD SUGAR DIAGNOSTIC 1 EACH STRIP VI SCH ×4 (06:44→20:10)
[2018-11-16 06:51] LABS: THYROID STIMULATING HORMONE 1.945 mIU/mL (0.358-3.740)
[2018-11-16 07:07] LABS: EOSINOPHILS % (MANUAL) 2 % (0-8); LYMPHOCYTES % (MANUAL) 24 % (20-40); MONOCYTES % (MANUAL) 8 % (2-10); NEUTROPHILS % (MANUAL) 66 % (42-75)
--- NOTE | 2018-11-16 07:10 | NUR ---
RECEIVED PATIENT ASLLEP WITH EYES CLOSED PATIENT WAS GIVEN SEDATIVE TO CALM HER DOWN FROM AGITATION SCREAMING AND RESTLESS SHE IS QUIET AND COMFORTABLE AT THIS TIME.REMAIN ON IVF ORDERED WITH NO S/S OF INFILTERATION AT THIS TIME.TURNED AND REPOSITIONED Q2H HEELS FLOATED MADE COMFORTABLE WILL CONTINUE TO OBSERVE.
[2018-11-16] MEDS: INSULIN REGULAR, HUMAN 300 UNIT/3 ML VIAL SQ PRN ×4 (07:43→20:11)
[2018-11-16] MEDS: NYSTATIN POWDER 15 GM BOTTLE TOP SCH ×2 (08:12→20:02)
[2018-11-16] MEDS: Z GUARD REMEDY PASTE 57 GM TUBE TOP SCH ×2 (08:12→20:02)
[2018-11-16] MEDS ORDERED: MAGNESIUM OXIDE 400 MG TABLET PO ONE (10:00)
[2018-11-16] MEDS: IV D5 1/2 NS 1000 ML 1,000 ML IV PRN (11:25)
[2018-11-16 11:30] VITALS: BP 151/83
[2018-11-16] MEDS: QUETIAPINE FUMARATE 25 MG TABLET PO PRN (15:41)
--- NOTE | 2018-11-16 15:41 | NUR ---
PATIENT IS AGITATED RESTLESS SCREAMING AT THE TOP OF HER VOICE UNABLE TO REDIRECT CALLED DR GRACIELA COLEMAN INFORMED HIM WITH NEW ORDERS AND NOTED.
[2018-11-16 16:00] VITALS: BP 142/65
[2018-11-16] MEDS: BACLOFEN 10 MG TABLET PO SCH (16:15)
[2018-11-16] MEDS ORDERED: LEVOFLOXACIN 250MG /D5W 50 ML IV SCH (17:00)
--- NOTE | 2018-11-16 18:08 | NUR ---
PATIENT IS CALMER NOW WAS ABLE TO EAT ALL OF HER DINNER NOT IN DISTRESS AT THIS TIME.
--- NOTE | 2018-11-16 19:20 | NUR ---
Received patient lying in bed. Awake but confused and disoriented. Periods of anxiety, screaming and yelling "mamma". Distraction and reorientation provided. In no acute distress. No signs or symptoms of pain or SOB. IV site on right wrist area intact and patent. IVF infusing. Safety measure initiated and call landry within reach.
[2018-11-16] MEDS: ACETAMINOPHEN 325 MG TABLET PO PRN (19:55)
[2018-11-16] MEDS: ATORVASTATIN 40 MG TABLET PO SCH (20:01)
[2018-11-16] MEDS: METOPROLOL TARTRATE 25 MG TABLET PO SCH (20:01)
[2018-11-16] MEDS: GABAPENTIN 300 MG CAPSULE PO SCH (20:01)
[2018-11-16 20:07] VITALS: BP 121/85
[2018-11-16] MEDS: ZOLPIDEM 5 MG TABLET PO PRN (20:16)
[2018-11-17] MEDS: IV D5 1/2 NS 1000 ML 1,000 ML IV PRN ×2 (01:41→15:11)
--- NOTE | 2018-11-17 06:11 | NUR ---
Patient slept well last night after Ambien was given. No further anxiety noted. In no acute distress. No signs or symptoms of pain or SOB at this time. IV site on right wrist area intact and patent. IVF infusing. Needs assessed and attended to. Safety measure maintained and call landry within reach.
[2018-11-17] MEDS: BLOOD SUGAR DIAGNOSTIC 1 EACH STRIP VI SCH ×4 (06:34→20:01)
[2018-11-17 06:48] VITALS: BP 101/51
[2018-11-17 06:52] LABS: BASOPHILS % (AUTO) 0.2 % (0.0-2.0); EOSINOPHILS # (AUTO) 0.2 K/uL (0.0-0.7); EOSINOPHILS % (AUTO) 3.1 % (0.0-7.0); HEMATOCRIT 36.8 % (31.2-41.9); HEMOGLOBIN 12.5 g/dL (10.9-14.3); LYMPHOCYTES % (AUTO) 20.4 % (20.5-51.5); MEAN CORPUSCULAR HEMOGLOBIN 27.3 uug (24.7-32.8); MEAN CORPUSCULAR HGB CONC 34 g/dL (32.3-35.6); MEAN CORPUSCULAR VOLUME 80.2 fL (75.5-95.3); MONOCYTES # (AUTO) 0.4 K/uL (2.0-10.0); MONOCYTES % (AUTO) 8.8 % (0.0-11.0); NEUTROPHILS # (AUTO) 3.4 K/uL (1.8-8.9); NEUTROPHILS % (AUTO) 67.5 % (38.5-71.5); PLATELET COUNT (AUTO) 75 K/uL (179-408); RED BLOOD CELL COUNT(AUTO) 4.59 MIL/uL (3.63-4.92); WHITE BLOOD COUNT (AUTO) 5.1 K/uL (3.8-11.8)
[2018-11-17 07:04] LABS: CARBON DIOXIDE 26 mmol/L (21-32); CHLORIDE 108 mmol/L (98-107); CREATININE 0.9 mg/dL (0.6-1.3); GLUCOSE 150 mg/dL (74-106); MAGNESIUM 2.1 mg/dL (1.8-2.4); PHOSPHOROUS 3.4 mg/dL (2.5-4.9); POTASSIUM 4.1 mmol/L (3.5-5.1); UREA NITROGEN, BLOOD 16 mg/dL (7-18)
[2018-11-17] MEDS: INSULIN REGULAR, HUMAN 300 UNIT/3 ML VIAL SQ PRN ×4 (07:33→20:03)
[2018-11-17] MEDS: FAMOTIDINE 20 MG TABLET PO SCH (08:01)
[2018-11-17] MEDS: METOPROLOL TARTRATE 25 MG TABLET PO SCH ×2 (08:01→20:00)
[2018-11-17] MEDS: BACLOFEN 10 MG TABLET PO SCH ×3 (08:01→16:07)
[2018-11-17] MEDS: CALCIUM CARBONATE 500 MG TABLET PO SCH (08:01)
[2018-11-17] MEDS: DOCUSATE SODIUM 100 MG CAPSULE PO SCH (08:01)
[2018-11-17] MEDS: NYSTATIN POWDER 15 GM BOTTLE TOP SCH ×2 (08:02→20:01)
[2018-11-17] MEDS: GABAPENTIN 300 MG CAPSULE PO SCH ×2 (08:02→20:00)
[2018-11-17] MEDS: Z GUARD REMEDY PASTE 57 GM TUBE TOP SCH ×2 (08:02→20:01)
[2018-11-17] MEDS: CEphaleXIN 250 MG CAPSULE PO SCH ×2 (13:30→21:53)
[2018-11-17] MEDS: ACETAMINOPHEN 325 MG TABLET PO PRN (14:49)
[2018-11-17] MEDS: QUETIAPINE FUMARATE 25 MG TABLET PO PRN (15:13)
[2018-11-17 15:30] VITALS: BP 113/62
[2018-11-17 20:00] VITALS: BP 123/66
[2018-11-17] MEDS: ATORVASTATIN 40 MG TABLET PO SCH (20:00)
--- NOTE | 2018-11-17 20:00 | NUR ---
Received patient laying in bed. HOB elevated. No acute distress noted. A/O [place] speaking. On room air. IVF infusing on the right wrist. Patent and intact. alf assessment done. Skin is intact. DVT pumps on. Safety initiated. Call light within reach. Will continue to monitor.
[2018-11-18 04:59] VITALS: BP 151/71
[2018-11-18] MEDS: CEphaleXIN 250 MG CAPSULE PO SCH (05:43)
[2018-11-18] MEDS: IV D5 1/2 NS 1000 ML 1,000 ML IV PRN (05:45)
[2018-11-18 05:57] VITALS: BP 149/65
--- NOTE | 2018-11-18 06:06 | NUR ---
No changes t/o shift. Patient slept intermittently t/o shift. Remains in room air. No acute distress noted. IVF infusing. Good urine output. Vitals signs stable. All meds given as ordered. All needs met.
[2018-11-18] MEDS: BLOOD SUGAR DIAGNOSTIC 1 EACH STRIP VI SCH ×2 (06:37→11:16)
[2018-11-18 07:25] LABS: BASOPHILS % (AUTO) 0.2 % (0.0-2.0); EOSINOPHILS # (AUTO) 0.2 K/uL (0.0-0.7); EOSINOPHILS % (AUTO) 3.7 % (0.0-7.0); HEMATOCRIT 34.6 % (31.2-41.9); HEMOGLOBIN 11.9 g/dL (10.9-14.3); MEAN CORPUSCULAR HEMOGLOBIN 27.7 uug (24.7-32.8); MEAN CORPUSCULAR HGB CONC 34 g/dL (32.3-35.6); MEAN CORPUSCULAR VOLUME 80.5 fL (75.5-95.3); MONOCYTES # (AUTO) 0.4 K/uL (2.0-10.0); MONOCYTES % (AUTO) 7.9 % (0.0-11.0); NEUTROPHILS # (AUTO) 3.4 K/uL (1.8-8.9); NEUTROPHILS % (AUTO) 68.2 % (38.5-71.5); PLATELET COUNT (AUTO) 72 K/uL (179-408); WHITE BLOOD COUNT (AUTO) 4.9 K/uL (3.8-11.8)
[2018-11-18] MEDS: INSULIN REGULAR, HUMAN 300 UNIT/3 ML VIAL SQ PRN ×2 (07:30→11:17)
[2018-11-18 07:31] LABS: CARBON DIOXIDE 26 mmol/L (21-32); CHLORIDE 109 mmol/L (98-107); CREATININE 0.9 mg/dL (0.6-1.3); GLUCOSE 170 mg/dL (74-106); PHOSPHOROUS 3.4 mg/dL (2.5-4.9); POTASSIUM 4.3 mmol/L (3.5-5.1); UREA NITROGEN, BLOOD 15 mg/dL (7-18)
[2018-11-18] MEDS: METOPROLOL TARTRATE 25 MG TABLET PO SCH (08:07)
[2018-11-18] MEDS: BACLOFEN 10 MG TABLET PO SCH ×2 (08:07→12:19)
[2018-11-18] MEDS: DOCUSATE SODIUM 100 MG CAPSULE PO SCH (08:07)
[2018-11-18] MEDS: FAMOTIDINE 20 MG TABLET PO SCH (08:07)
[2018-11-18] MEDS: CALCIUM CARBONATE 500 MG TABLET PO SCH (08:07)
[2018-11-18] MEDS: GABAPENTIN 300 MG CAPSULE PO SCH (08:07)
[2018-11-18] MEDS: NYSTATIN POWDER 15 GM BOTTLE TOP SCH (08:17)
[2018-11-18] MEDS: Z GUARD REMEDY PASTE 57 GM TUBE TOP SCH (08:17)
[2018-11-18] MEDS ORDERED: CEPH250C PO (10:32)
[2018-11-18 11:43] VITALS: BP 142/62
--- NOTE | 2018-11-18 12:27 | NUR ---
dc orders received noted and carried out,dc instruction and rn report given to the group home,pt left the facility via ambulances in stable condition dc heplock per md orders
== END 2018-11-18 12:30 | DRG 689 ==
LOC: ER 13:41 → TELE3 16:55 → MEDSURG3 11-16 16:34
PROVIDERS: ADMIT Student in an Organized Health Care Education/Training Program; ATTEND Student in an Organized Health Care Education/Training Program
DX: N39.0 Urinary tract infection, site not specified (principal); G93.41 Metabolic encephalopathy; I50.32 Chronic diastolic (congestive) heart failure; D68.59 Other primary thrombophilia; I11.0 Hypertensive heart disease with heart failure; K56.41 Fecal impaction; N20.0 Calculus of kidney; K43.9 Ventral hernia without obstruction or gangrene; E11.65 Type 2 diabetes mellitus with hyperglycemia; K21.9 Gastro-esophageal reflux disease without esophagitis; M12.50 Traumatic arthropathy, unspecified site; G89.29 Other chronic pain; Z87.11 Personal history of peptic ulcer disease; F41.9 Anxiety disorder, unspecified; F01.50 Vascular dementia, unspecified severity, without behavioral disturbance, psychotic disturbance, mood disturbance, and anxiety; I25.10 Atherosclerotic heart disease of native coronary artery without angina pectoris; Z87.81 Personal history of (healed) traumatic fracture; Z98.890 Other specified postprocedural states
CPT/HCPCS: 36415; 70030-TC; 70450; 71045; 83605; 83735; 84100; 84443; 85025; 85730; 87040; 87077; 87086; 93005; A4663; G0378; J1815; J1956; J2060; J3490; J7030

== ENCOUNTER 2021-03-05 11:24 | Inpatient (IN) | payer MEDICARE, OTHER ==
[~2021-03-05] VITALS: Ht 160 cm; Wt 45.4 kg
[~2021-03-05 11:24] MED LIST changes: +ACID1TAB12 PO; -ACID1TAB4 PO; -ALBU2.5V38 NEB; +BACL5TAB PO; +CALC-1026 PO; +CEPH250C PO; -CRAN500C5 PO; +DEXT15DR6 OP; -DEXT1CAP3 PO; +DOCU-141 PO; +FAMO10TA41 PO; -GABA-532 PO; +GABA-534 PO; -HYDR-3326 PO; +HYDR-3974 PO; -MENT71OI TOP; +METO25TA6 PO; -Metoprolol Tartrate PO; -PANT20TA2 PO; -QUET25TA PO; -RIVA10TA PO; +UTI HEAL PO
[2021-03-05] MEDS ORDERED: IV NORMAL SALINE 1000 ML BAG IV ONE (11:45)
[2021-03-05] MEDS ORDERED: MULT-594 PO (11:47)
[2021-03-05] MEDS ORDERED: ACET-2605 PO (11:47)
[2021-03-05] MEDS ORDERED: MIRT-121 PO (11:47)
[2021-03-05] MEDS ORDERED: GLIM1TAB PO (11:47)
[2021-03-05 11:58] LABS: HEMATOCRIT 37.5 % (31.2-41.9); MEAN CORPUSCULAR HEMOGLOBIN 28.2 uug (24.7-32.8); MEAN CORPUSCULAR VOLUME 82.5 fL (75.5-95.3); PLATELET COUNT (AUTO) 137 K/uL (179-408)
[2021-03-05 12:07] LABS: BILIRUBIN,TOTAL 0.5 mg/dL (0.2-1.0); CREATININE 0.9 mg/dL (0.6-1.3); POTASSIUM 3.9 mmol/L (3.5-5.1); TOTAL PROTEIN, SERUM 7.3 g/dL (6.4-8.2)
[2021-03-05 13:59] LABS: *BILIRUBIN,URIN NEGATIVE (NEGATIVE); *BLOOD, URINE 3+ (NEGATIVE); *CLARITY,URINE SLIGHTLY CLOUDY (CLEAR); *COLOR,URINE YELLOW (YELLOW); *KETONES,URINE NEGATIVE (NEGATIVE); *UROBILINOGEN,URINE 0.2 E.U./dl (NORMAL); LEUKOCYTE ESTERASE ,URINE 1+ (NEGATIVE); NITRITE, URINE NEGATIVE (NEGATIVE); UGLUCOSE NEGATIVE (NEGATIVE)
--- NOTE | 2021-03-05 14:20 | NUR ---
1330: attempted I&O cath using aseptic technique, first attempt unsuccessful. second attempt successful. Urine taken to lab
[2021-03-05 17:55] VITALS: BP 133/67
[2021-03-05] MEDS ORDERED: FLEET ENEMA 133 ML BOTTLE RC PRN (18:15)
[2021-03-05] MEDS ORDERED: BISACODYL 10 MG SUPP.RECT RC PRN (18:15)
[2021-03-05] MEDS ORDERED: POLYVINYL ALCOHOL OPHT DROPS 15 ML BOTTLE EACHEYE PRN (18:15)
[2021-03-05] MEDS ORDERED: ONDANSETRON 4 MG/2 ML VIAL IV PRN (18:30)
[2021-03-05] MEDS ORDERED: TEMAZEPAM 15 MG CAPSULE PO PRN (18:30)
[2021-03-05 20:19] VITALS: BP 143/51
[2021-03-05] MEDS: CEFTRIAXONE 1 G in IV DEXTROSE 5% 50 ML IV SCH (21:06)
[2021-03-05] MEDS: MIRTAZAPINE 15 MG TABLET PO SCH (21:06)
[2021-03-05] MEDS: GABAPENTIN 300 MG CAPSULE PO SCH (21:06)
[2021-03-05 21:23] LABS: BACTERIA,URINE FEW /HPF (NONE SEEN); SQUAMOUS EPITHELIAL CELL,UR FEW /HPF (NONE SEEN)
[2021-03-06 00:21] VITALS: BP 114/76
[2021-03-06 04:32] VITALS: BP 112/55
[2021-03-06 06:45] LABS: HEMATOCRIT 38.3 % (31.2-41.9); MEAN CORPUSCULAR VOLUME 81.9 fL (75.5-95.3); PLATELET COUNT (AUTO) 115 K/uL (179-408)
[2021-03-06 07:31] LABS: THYROID STIMULATING HORMONE 0.624 mIU/mL (0.358-3.740)
--- NOTE | 2021-03-06 07:49 | NUR ---
Pt slept intermittently. No distress noted. SR on tele. IV site intact. Tolerated Rocephin. Able to swallow without coughing. No other issues or concerns. Will endorse to day shift.
--- NOTE | 2021-03-06 08:00 | NUR ---
AWAKE ALERT AND VERBALLY RESPONSIVE BUT CONFUSED X3 REQUIRES TOTAL ASSIST IN ALL AREAS OF ADLS
[2021-03-06 08:03] LABS: BILIRUBIN,TOTAL 0.4 mg/dL (0.2-1.0); CREATININE 0.9 mg/dL (0.6-1.3); MAGNESIUM 2.3 mg/dL (1.8-2.4); POTASSIUM 4.1 mmol/L (3.5-5.1)
[2021-03-06] MEDS: GABAPENTIN 300 MG CAPSULE PO SCH ×2 (08:46→20:09)
[2021-03-06] MEDS: DOCUSATE SODIUM 100 MG CAPSULE PO SCH (08:46)
[2021-03-06] MEDS: PANTOPRAZOLE SODIUM 40 MG VIAL IV SCH (08:46)
[2021-03-06] MEDS: ACETAMINOPHEN 325 MG TABLET PO PRN ×2 (08:46→20:09)
[2021-03-06 11:00] VITALS: BP 93/71
[2021-03-06] MEDS ORDERED: TEMAZEPAM 7.5 MG CAPSULE PO PRN (12:00)
--- NOTE | 2021-03-06 12:00 | NUR ---
SEEN BY DR GUDINO SEE NOTES. CONTINUE WITH CURRENT TX PLAN
--- NOTE | 2021-03-06 15:56 | NUR ---
NO ACUTE CHANGE FROM MORNING ASSESSMENTS 2D-ECHO EF 55%. NO SS OF PAIN OR DISTRESS
[2021-03-06 16:01] VITALS: BP 133/72
--- NOTE | 2021-03-06 19:30 | NUR ---
RECEIVED PT IN NO ACUTE DISTRESS. IV INTACT. SAFETY AND COMFORT PROVIDED. WILL CONTINUE TO MONITOR.
[2021-03-06] MEDS: CEFTRIAXONE 1 G in IV DEXTROSE 5% 50 ML IV SCH (19:31)
[2021-03-06 20:00] VITALS: BP 136/68
[2021-03-06] MEDS: MIRTAZAPINE 15 MG TABLET PO SCH (20:10)
[2021-03-07] VITALS: BP 140/72
[2021-03-07 05:07] VITALS: BP 131/71
--- NOTE | 2021-03-07 06:33 | NUR ---
PT SLEPT INTERMITTENTLY. PT IN NO ACUTE DISTRESS. IV INTACT.PT IN NO ACUTE DISTRESS. PT STABLE. PT ON SINUS RHYTHM. PT TURNED AND REPOSITIONED. SAFETY AND COMFORT PROVIDED. ALL NEEDS ARE MET. WILL ENDORSE TO INCOMING NURSE FOR CONTINUITY OF CARE.
--- NOTE | 2021-03-07 07:35 | NUR ---
Received report from power and recovery shift engineer nurse. Patient not exhibiting any signs of acute distress. IV line intact and patent. Patient is AxOx1-2. Responds well to name. Safety measures provided with bed left in the lowest position and call light within reach.
[2021-03-07 07:48] LABS: CREATININE 0.8 mg/dL (0.6-1.3); MAGNESIUM 2.1 mg/dL (1.8-2.4); PHOSPHOROUS 3.9 mg/dL (2.5-4.9); POTASSIUM 4.4 mmol/L (3.5-5.1)
[2021-03-07 07:59] LABS: HEMATOCRIT 38.9 % (31.2-41.9); MEAN CORPUSCULAR VOLUME 83.1 fL (75.5-95.3); PLATELET COUNT (AUTO) 130 K/uL (179-408)
[2021-03-07] MEDS: GABAPENTIN 300 MG CAPSULE PO SCH ×2 (08:23→20:04)
[2021-03-07] MEDS: DOCUSATE SODIUM 100 MG CAPSULE PO SCH (08:23)
[2021-03-07] MEDS: PANTOPRAZOLE SODIUM 40 MG VIAL IV SCH (08:23)
[2021-03-07] MEDS: METOPROLOL SUCCINATE XL 25 MG TAB.SR.24H PO SCH (10:12)
[2021-03-07 11:35] VITALS: BP 112/77
[2021-03-07 16:05] VITALS: BP 135/69
--- NOTE | 2021-03-07 18:35 | NUR ---
Patient showed no acute changes during the shift. Patient is AxOx1-2. Able to respond to name. Tolerates food well, as well as medication consumption. IV site intact and patent. Bed left in lowest position with call light within reach. Will endorse information to PM nurse.
[2021-03-07] MEDS: ACETAMINOPHEN 325 MG TABLET PO PRN (19:25)
[2021-03-07] MEDS: CEFTRIAXONE 1 G in IV DEXTROSE 5% 50 ML IV SCH (19:26)
--- NOTE | 2021-03-07 19:30 | NUR ---
RECEIVED PT IN NO ACUTE DISTRESS. IV INTACT. SAFETY AND COMFORT PROVIDED. WILL CONTINUE TO MONITOR.
[2021-03-07] MEDS: MIRTAZAPINE 15 MG TABLET PO SCH (20:04)
[2021-03-07 20:12] VITALS: BP 120/66
[2021-03-08 04:12] VITALS: BP 138/58
--- NOTE | 2021-03-08 05:52 | NUR ---
PT SLEPT INTERMITTENTLY. PT IN NO ACUTE DISTRESS. PRESCRIBED MEDICATION GIVEN AND PT TOLERATED IT WELL.PT TURNED AND REPOSITIONED. SAFETY AND COMFORT PROVIDED. WILL ENDORSE TO INCOMING NURSE FOR CONTINUITY OF CARE.
--- NOTE | 2021-03-08 07:00 | NUR ---
Patient is alert to name, no pain or distress identified. Kept comfortable. Call light within reach. Will continue to monitor.
[2021-03-08 09:09] VITALS: BP 150/77
[2021-03-08] MEDS: GABAPENTIN 300 MG CAPSULE PO SCH (09:14)
[2021-03-08] MEDS: PANTOPRAZOLE SODIUM 40 MG VIAL IV SCH (09:14)
[2021-03-08] MEDS: DOCUSATE SODIUM 100 MG CAPSULE PO SCH (09:14)
[2021-03-08] MEDS: METOPROLOL SUCCINATE XL 25 MG TAB.SR.24H PO SCH (09:14)
[2021-03-08 11:02] VITALS: BP 107/59
[2021-03-08] MEDS ORDERED: METO-356 PO (11:31)
[2021-03-08] MEDS ORDERED: TEMA7.5C PO (11:31)
[2021-03-08] MEDS ORDERED: NITR100C11 PO (11:31)
[2021-03-08] MEDS ORDERED: POLY15DR27 EACHEYE (11:31)
[2021-03-08] MEDS ORDERED: ACET325T53 PO (11:31)
[2021-03-08] MEDS ORDERED: ACID1TAB12 PO (11:31)
[2021-03-08 15:12] VITALS: BP 100/21
--- NOTE | 2021-03-08 15:30 | NUR ---
Discharged patient via ambulance with 2 EMT assist. skin intact. no distress or pain identified. no belongings noted. discharged instruction given to the EMT. Report given to ANNETTE Pereyra building custodial supervisor of the facility. All due meds given as ordered. Kept safe during her stay. Aspiration precaution maintained.
== END 2021-03-08 16:00 | DRG 689 ==
LOC: ER 11:24 → MEDSURG3 17:30 → TELE3 20:20 → MEDSURG3 03-07 09:45
PROVIDERS: ADMIT Internal Medicine; ATTEND Internal Medicine
DX: N39.0 Urinary tract infection, site not specified (principal); G92.8 Other toxic encephalopathy; Z68.1 Body mass index [BMI] 19.9 or less, adult; I50.32 Chronic diastolic (congestive) heart failure; D68.59 Other primary thrombophilia; E46 Unspecified protein-calorie malnutrition; R62.7 Adult failure to thrive; E86.0 Dehydration; R13.10 Dysphagia, unspecified; I11.0 Hypertensive heart disease with heart failure; D69.6 Thrombocytopenia, unspecified; F01.50 Vascular dementia, unspecified severity, without behavioral disturbance, psychotic disturbance, mood disturbance, and anxiety; I25.10 Atherosclerotic heart disease of native coronary artery without angina pectoris; Z86.73 Personal history of transient ischemic attack (TIA), and cerebral infarction without residual deficits; K21.9 Gastro-esophageal reflux disease without esophagitis; Z20.822 Contact with and (suspected) exposure to COVID-19; K59.00 Constipation, unspecified; N20.0 Calculus of kidney; N27.1 Small kidney, bilateral; Z79.84 Long term (current) use of oral hypoglycemic drugs; Z87.11 Personal history of peptic ulcer disease; F41.9 Anxiety disorder, unspecified; M19.90 Unspecified osteoarthritis, unspecified site; Z88.1 Allergy status to other antibiotic agents; Z88.0 Allergy status to penicillin
CPT/HCPCS: 36415; 70030-TC; 71045; 82378; 83550; 83605; 83735; 84100; 84443; 85025; 85610; 87040; 87086; 93005; 93307; 97161; A4663; C1758; C9113; G0378; J0696; J7030; J7040; J7060